=== PATIENT | female | born 1960 | race Caucasian/White ===

== ENCOUNTER → 2017-10-01 | Outpatient (CLI) | payer BC ==
[~2017-10-01] MED LIST: BENADRYL25 MG PO; BENTYL20 MG PO; BLACK COHOSH40 M1; CIPROFLOXACIN500 M1; CIPROFLOXACIN500 M1 PO; COZAAR 25 MG TA25 M2 PO; CYCLOBENZAPRINE10 MG PO; DARVOCET-N 1001 EACH PO; FIORICET 50-321 EACH PO; FLAGYL500 MG PO; FLEXERIL PO; GLUCOPHAGE500 MG PO; HCTZ; HYDROCHLOROTHIA25 M1; IBUPROFEN 400400 M1 PO; IBUPROFEN 800800 M1 PO; IMODIUM ADVANC1 EAC1 PO; LIORESAL 10 MG10 MG PO; LOPRESSOR; MULTIVITAMINS; PERCOCET 5-3251 EACH PO; PHENERGAN 25 MG25 M1 PO; POTASSIUM CHLO10 ME1 PO; TRAMADOL 50 MG50 MG PO; ULTRACET TABLE1 EACH PO; UNICOMPLEX M TA1 TA1; VICODIN 5-5001 EACH PO; VICTOZA0.6 MG/0.1 SUBQ; ZOFRAN ODT4 MG PO; [UNRECOGNIZED DRUG - OTHER]
== END ==
LOC: M.RAD 15:10
DX: Z12.31 Encounter for screening mammogram for malignant neoplasm of breast (principal)

== ENCOUNTER → 2018-06-25 | Outpatient (CLI) | payer OTHER | LOC: M.CT 06-18 14:15 | DX: Z13.6 Encounter for screening for cardiovascular disorders (principal) ==

== ENCOUNTER 2018-07-19 20:27 | Emergency (ER) | payer BC ==
[~2018-07-19] VITALS: Ht 170.2 cm; Wt 102.1 kg
[~2018-07-19 20:27] MED LIST changes: -FLEXERIL PO
[2018-07-19] MEDS ORDERED: FLEXERIL PO (21:05)
[2018-07-19 21:43] VITALS: BP 161/67
== END 2018-07-19 21:44 | disposition home or self-care (01) ==
LOC: M.ERS 20:27
DX: M54.32 Sciatica, left side (principal); F17.210 Nicotine dependence, cigarettes, uncomplicated; Z88.5 Allergy status to narcotic agent; Z88.6 Allergy status to analgesic agent; Z88.8 Allergy status to other drugs, medicaments and biological substances; Z90.710 Acquired absence of both cervix and uterus; Z96.651 Presence of right artificial knee joint

== ENCOUNTER → 2019-01-27 | Outpatient (CLI) | payer BC ==
[~2019-01-27] MED LIST changes: +FLEXERIL PO
== END ==
LOC: M.RAD 01-18 10:33
DX: Z12.31 Encounter for screening mammogram for malignant neoplasm of breast (principal); Z13.820 Encounter for screening for osteoporosis; N95.1 Menopausal and female climacteric states; M19.90 Unspecified osteoarthritis, unspecified site; E28.39 Other primary ovarian failure

== ENCOUNTER 2019-03-09 08:17 | Emergency (ER) | payer BC ==
[~2019-03-09] VITALS: Ht 170.2 cm; Wt 105.2 kg
[2019-03-09] MEDS ORDERED: CRESTOR10 MG PO (08:31)
[2019-03-09] MEDS ORDERED: AMBIEN5 MG PO (08:31)
[2019-03-09] MEDS ORDERED: OMEPRAZOLE40 MG PO (08:32)
[2019-03-09 08:50] LABS: ABSOLUTE BASOPHILS 0.1 thou/uL (0.0-0.2); ABSOLUTE EOSINOPHILS 0.2 thou/uL (0.0-0.7); ABSOLUTE LYMPHOCYTES 2.9 thou/uL (0.8-5.3); ABSOLUTE MONOCYTES 0.3 thou/uL (0.0-1.2); ABSOLUTE NEUTROPHILS 2.6 thou/uL (1.6-8.1); EOSINOPHILS 2.8 %; HEMATOCRIT 34.8 % (37.0-47.0); HEMOGLOBIN 11.8 gm/dL (12.0-15.0); LYMPHOCYTES 47.2 %; MCH 28.2 pg (26.0-34.0); MCHC 33.8 g/dL (28.0-37.0); MCV 83.6 fL (80.0-100.0); MONOCYTES 5.5 %; NUCLEATED RBCS 0 /100WBC; PLATELET COUNT* 276 thou/uL (150-400); POLYS 43.5 %; RBC 4.16 mil/uL (4.20-5.00); RDW-CV 13.7 % (10.5-14.5); WBC 6.1 thou/uL (4.0-11.0)
[2019-03-09 09:00] LABS: APTT 25.9 Seconds (25.0-31.3); PROTIME 10.1 Seconds (9.20-11.50)
[2019-03-09 09:12] LABS: ANION GAP 10 mmol/L (7-16); BUN 19 mg/dL (7-18); CALCIUM 9.3 mg/dL (8.5-10.1); CHLORIDE 104 mmol/L (98-107); CO2 26 mmol/L (21-32); CREATININE 0.8 mg/dL (0.6-1.3); GLUCOSE 198 mg/dL (70-99); POTASSIUM 4.3 mmol/L (3.5-5.1); SODIUM 140 mmol/L (136-145)
[2019-03-09 09:29] LABS: ALBUMIN 3.4 g/dL (3.4-5.0); ALKALINE PHOSPHATASE 93 U/L (46-116); NT-PRO BRAIN NAT PEPTIDE 86 pg/mL (<300); SGOT 34 U/L (15-37); SGPT 39 U/L (30-65); TOTAL BILIRUBIN 0.3 mg/dL (<0.1-1.0); TOTAL PROTEIN 7.2 g/dL (6.4-8.2); TROPONIN-I LEVEL <0.06 ng/mL (<0.06)
[2019-03-09 09:55] VITALS: BP 152/73
--- NOTE | 2019-03-09 15:38 | EKG ---
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1960 Requested By: Vaibhav Daniels Order Number: [id number] MD: Gallito Keith Measurements Intervals [place] Rate: 83 P: 68 NH: 169 QRS: 25 QRSD: 80 T: 66 QT: 378 QTc: 445 Interpretive Statements Sinus rhythm premature complex supraventricular Low voltage, precordial leads Anteroseptal infarct, old Compared to ECG 09/09/2016 14:39:42 supraventricular beat(s) now present Low QRS voltage now present Myocardial infarct finding still present Electronically Signed On 03-09-2019 15:38:40 CDT by Gallito Keith [email or web address] <ELECTRONICALLY SIGNED> By: Gallito Keith MD, [facility] 03/09/19 1538 0830 0830 Gallito Keith MD, [facility] /EPI
== END 2019-03-09 09:56 | disposition home or self-care (01) ==
LOC: M.ERS 08:17
PROVIDERS: Family Medicine
DX: R42 Dizziness and giddiness (principal); Z88.8 Allergy status to other drugs, medicaments and biological substances; Z88.6 Allergy status to analgesic agent; Z88.5 Allergy status to narcotic agent; Z90.89 Acquired absence of other organs; Z96.651 Presence of right artificial knee joint

== ENCOUNTER 2019-09-04 14:59 | Inpatient (IN) | payer BC ==
[~2019-09-04] VITALS: Ht 172.7 cm; Wt 106.1 kg
[~2019-09-04 14:59] MED LIST changes: +AMBIEN5 MG PO; +CRESTOR10 MG PO; +OMEPRAZOLE40 MG PO
[2019-09-04 15:07] VITALS: BP 141/58
[2019-09-04] MEDS ORDERED: CRESTOR10 MG PO (15:19)
[2019-09-04 15:47] LABS: URINE BILIRUBIN NEGATIVE (Negative); URINE BLOOD NEGATIVE (Negative); URINE CLARITY CLEAR; URINE COLOR YELLOW; URINE GLUCOSE-RANDOM TRACE (Negative); URINE KETONES NEGATIVE (Negative); URINE LEUKOCYTES-REFLEX NEGATIVE (Negative); URINE NITRITE-REFLEX NEGATIVE (Negative); URINE PROTEIN NEGATIVE (Negative); URINE UROBILINOGEN 0.2 E.U./dl (0.2-1.0)
[2019-09-04 15:54] LABS: ABSOLUTE EOSINOPHILS 0.2 thou/uL (0.0-0.7); ABSOLUTE LYMPHOCYTES 2.4 thou/uL (0.8-5.3); ABSOLUTE MONOCYTES 0.5 thou/uL (0.0-1.2); ABSOLUTE NEUTROPHILS 8.3 thou/uL (1.6-8.1); BASOPHILS 0.2 %; EOSINOPHILS 1.8 %; HEMATOCRIT 35.2 % (37.0-47.0); HEMOGLOBIN 11.9 gm/dL (12.0-15.0); MCH 29.3 pg (26.0-34.0); MCHC 33.9 g/dL (28.0-37.0); MCV 86.6 fL (80.0-100.0); MONOCYTES 4.1 %; MPV 6.8 fl. (7.2-11.1); NUCLEATED RBCS 0 /100WBC; PLATELET COUNT* 281 thou/uL (150-400); POLYS 72.9 %; RBC 4.06 mil/uL (4.20-5.00); RDW-CV 13.2 % (10.5-14.5); WBC 11.4 thou/uL (4.0-11.0)
[2019-09-04 16:02] LABS: CALCIUM 8.7 mg/dL (8.5-10.1); CREATININE 0.8 mg/dL (0.6-1.3); POTASSIUM 3.5 mmol/L (3.5-5.1)
[2019-09-04 16:06] LABS: ALBUMIN 3.6 g/dL (3.4-5.0); TOTAL BILIRUBIN 0.3 mg/dL (<0.1-1.0); TOTAL PROTEIN 7.6 g/dL (6.4-8.2)
[2019-09-04 17:47] LABS: AMP/METHAMP Negative (Negative); BARBITURATES Negative (Negative); BENZODIAZEPINES Negative (Negative); COCAINE Negative (Negative); METHADONE Negative (Negative); OPIATES Negative (Negative); PCP Negative (Negative); THC Negative (Negative)
[2019-09-04 18:01] LABS: PROTIME 10.3 Seconds (9.20-11.50)
[2019-09-04 18:18] VITALS: BP 148/57
--- NOTE | 2019-09-04 18:18 | NUR ---
REPORT GIVEN TO ALYSSIA VASQUEZ WHO IS TO ASSUME PT CARE INPATIENT NURSE.
[2019-09-04 18:40] VITALS: BP 145/77
--- NOTE | 2019-09-04 18:53 | NUR ---
PT ARRIVED ON UNIT AT 1840 AND AMBULATED TO BATHROOM FROM ER CART WITH A STEADY GAIT. REBECA CADE FROM ER STATED THE PHYSICIAN WAS OKAY WITH ICE CHIPS THIS SHIFT. PT TO TRANSITION TO NS @ 150 AFTER W/O COMPLETE. PT REPORTS NAUSEA, AND PAIN OF 7/10, SHE STATES THE ZOFRAN ONLY LASTS FOR A FEW MINUTES BUT HER PAIN IS TOLERABLE AT THIS TIME. WILL CONTINUE TO MONITOR AND ASSESS.
[2019-09-05] VITALS: BP 111/50
[2019-09-05 04:05] LABS: HEMATOCRIT 29.8 % (37.0-47.0); MCHC 33.2 g/dL (28.0-37.0); MCV 87.4 fL (80.0-100.0); MPV 6.9 fl. (7.2-11.1); NUCLEATED RBCS 0 /100WBC; PLATELET COUNT* 238 thou/uL (150-400); RBC 3.41 mil/uL (4.20-5.00); RDW-CV 13.4 % (10.5-14.5); WBC 7.2 thou/uL (4.0-11.0)
[2019-09-05 04:26] LABS: HEMOGLOBIN 9.9 gm/dL (12.0-15.0)
--- NOTE | 2019-09-05 04:28 | NUR ---
ASSUMED CARE OF PT 09/04/19 AT APPROX 1930, PT A&OX4 THROUGHOUT SHIFT, VSS, PT ON ROOM AIR, UP AD [place], PAIN AND ANTIEMETIC REQUESTED AND GIVEN ORDERED, ASSESSMENTS AND HOURLY ROUNDING COMPLETED. WILL CONTINUE TO MONITOR.
[2019-09-05 04:39] LABS: ALBUMIN 2.9 g/dL (3.4-5.0); CALCIUM 8.3 mg/dL (8.5-10.1); CREATININE 0.7 mg/dL (0.6-1.3); POTASSIUM 3.4 mmol/L (3.5-5.1); TOTAL BILIRUBIN 0.4 mg/dL (<0.1-1.0)
[2019-09-05 04:41] LABS: CHOLESTEROL 118 mg/dL (<200); HDL CHOLESTEROL 34 mg/dL (>40); LDL CHOLESTEROL 61 mg/dL (<100); TC:HDL 3.5 Ratio (Not establshd); TRIGLYCERIDE 116 mg/dL (<150); VLDL 23 mg/dL (<40)
[2019-09-05 05:01] LABS: SERUM ASSESSMENT CLEAR
[2019-09-05 06:57] LABS: ABSOLUTE EOSINOPHILS 0.4 thou/uL (0.0-0.7); ABSOLUTE LYMPHOCYTES 4.2 thou/uL (0.8-5.3); ABSOLUTE MONOCYTES 0.4 thou/uL (0.0-1.2); ABSOLUTE NEUTROPHILS 2.3 thou/uL (1.6-8.1); ANISOCYTOSIS 1+; ATYPICAL LYMPHS 2 %; HYPOCHROMASIA 1+; PLATELET ESTIMATE ADEQUATE
[2019-09-05 06:58] LABS: TOXIC GRANULATION 1+
[2019-09-05 07:20] VITALS: BP 128/66
[2019-09-05 16:54] VITALS: BP 158/87
--- NOTE | 2019-09-05 18:18 | NUR ---
RECEIVED REPORT FROM VETO CADE. ASSUMED CARE OF PT AROUND 1030. PT A&O X4. VSS. THIS RN AGREES WITH THE ASSESSMENT AND CHARTING OF VETO CADE. PT NPO MOST OF SHIFT FOR MRI MRCP - PT WENT DOWN FOR PROCEDURE BUT WAS ONLY ABLE TO GET THROUGH PART OF TEST BEFORE HAVING TO STOP DUE TO CLAUSTROPHOBIA. PT TOLERATED CLD AT DINNER. UP WITH SBA TO BATHROOM TO VOID. MEDS PER EMAR. IV INTACT AND INFUSING IVF. PT COMPLAINED OF ABDOMINAL PAIN AND NAUSEA THIS AFTERNOON AND RECEIVED IV PAIN MEDICATION AND ANTIEMETIC, WITH RELIEF. FAMILY AT BEDSIDE THIS EVENING. GI CONSULTED. PT CURRENTLY SITTING UP IN BED WATCHING TV. CALL LIGHT IS WITHIN REACH. HOURLY ROUNDING PERFORMED. LOW FALL RISK PRECAUTIONS IN PLACE.
[2019-09-05 20:00] VITALS: BP 133/86
[2019-09-06 04:39] LABS: HEMATOCRIT 28.4 % (37.0-47.0); HEMOGLOBIN 9.8 gm/dL (12.0-15.0); MCH 29.6 pg (26.0-34.0); MCHC 34.5 g/dL (28.0-37.0); MCV 85.8 fL (80.0-100.0); MPV 6.6 fl. (7.2-11.1); RBC 3.31 mil/uL (4.20-5.00); RDW-CV 13.1 % (10.5-14.5); WBC 5.5 thou/uL (4.0-11.0)
--- NOTE | 2019-09-06 04:41 | NUR ---
ASSUMED PATIENT CARE AT 1900. ALERT AND ORIENTED TIMES FOUR. MINOR COMPLAINT OF A HEADACHE, MEDICINE GIVEN. ALSO MINOR COMPLAINT OF HIVES, BENADRYL GIVEN. NO OTHER REACTION NOTED. ABLE TO TOLERATE CLEAR LIQUIDS AT DINNER, ADVANCED TO FULL LIQUID FOR BREAKFAST. SEVERAL BOWEL MOVEMENTS NOTED BY PATIENT. INGOT WEIGHER AND HOURLY ROUNDING COMPLETED CHARTED.
[2019-09-06 04:48] LABS: CALCIUM 8.9 mg/dL (8.5-10.1); CREATININE 0.7 mg/dL (0.6-1.3); POTASSIUM 3.8 mmol/L (3.5-5.1)
[2019-09-06 07:30] VITALS: BP 144/81
[2019-09-06] MEDS ORDERED: FLAGYL500 M1 PO (10:14)
[2019-09-06] MEDS ORDERED: CIPRO500 M1 PO (10:14)
[2019-09-06 10:35] VITALS: BP 144/81
--- NOTE | 2019-09-06 10:48 | EKG ---
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[facility] : 1960 Requested By: Katerine Ross Order Number: [id number] MD: Dmitriy Hernandez Measurements Intervals [place] Rate: 82 P: 74 [place]: 168 QRS: 35 QRSD: 92 T: 73 QT: 400 QTc: 468 Interpretive Statements Sinus rhythm Anteroseptal infarct, age indeterminate, possible Baseline wander in lead(s) I,III,aVR,aVL Compared to ECG 03/09/2019 08:30:15 No significant changes Electronically Signed On 09-06-2019 10:48:17 LIQUID COMPOUNDER by Dmitriy Hernandez [email or web address] <ELECTRONICALLY SIGNED> By: Dmitriy Hernandez MD, FACC 09/06/19 1048 1556 1556 Dmitriy Hernandez MD, FAC /EPI
--- NOTE | 2019-09-06 11:07 | PATH ---
[address] [address] PATHOLOGY RPT PROCEDURE Name: LEOPOLDO HERRERA Lj Room: [address] IN [facility]#: [id number] Admission: 09/04/19 Date of : 56 Discharge: Report #: [id number] Path Case #: [id number] Note [facility] Accession Number: [id number] TESTS RESULT FLAG UNITS REF RANGE LAB Clinician Provided Cytology Information No. of containers..01 Other (Miscellaneous) Source: VOMITED SPECIMEN DIAGNOSIS: VOMITED SPECIMEN NEGATIVE FOR MALIGNANT CELLS. DEGENERATING DEBRIS AND FEW SQUAMOUS CELLS. Signed out by: Toño Richey MD, Pathologist NPI- [id number] Performed by: Femi Bautista, Network Operations Center Engineer ([facility]) Gross description: 01 30 ML, LT BROWN, THICK /LCS 10/04/1840 0000 Local FLAG LEGEND: L-Low Normal,H-High Normal,LL-Alert Low,HH-Alert High <-Panic Low,>-Panic High,A-Abnormal,AA-Critical Abnormal Performed at: 01 [facility] [address] [place] [address] Js Berry MD, [address] [address] Toño Richey MD, Specimen Comment: A courtesy copy of this report has been sent to [phone] Specimen Comment: Report sent to Performed at: 01 [facility] [address] [place] [address] [address], [place], [place] [id number] MD Js Berry MD Phone: [phone]
[2019-09-06 11:37] VITALS: BP 144/81
[2019-09-06 15:20] VITALS: BP 144/81
[2019-09-06 15:29] VITALS: BP 144/81
--- NOTE | 2019-09-06 15:30 | NUR ---
PT GIVEN DSICHARGE INFORMATION, CARE NOTES, AND PRESCRIPTIONS. IV REMOVED, PT EDUCATED ON HOLDING PRESSURE TO STOP BLEEDING. PT BELONGINGS GATHERED. FALL RISK PRECAUTIONS IN PLACE. HOURLY ROUNDING COMPLETED. PT LEFT AMBULATORY WITH NURSING STAFF TO HOME.
== END 2019-09-06 15:31 | disposition home or self-care (01) | DRG 392 ==
LOC: M.ERS 14:59 → M.TBA-ER 17:14 → M.ORTHSURG 17:14
PROVIDERS: Nurse Practitioner Family; ADMIT Family Medicine
DX: K57.32 Diverticulitis of large intestine without perforation or abscess without bleeding (principal); R74.8 Abnormal levels of other serum enzymes; K57.90 Diverticulosis of intestine, part unspecified, without perforation or abscess without bleeding; I10 Essential (primary) hypertension; K58.9 Irritable bowel syndrome, unspecified; Z96.651 Presence of right artificial knee joint; F17.210 Nicotine dependence, cigarettes, uncomplicated; E66.9 Obesity, unspecified; F41.9 Anxiety disorder, unspecified; R16.0 Hepatomegaly, not elsewhere classified; T50.995A Adverse effect of other drugs, medicaments and biological substances, initial encounter; K76.0 Fatty (change of) liver, not elsewhere classified; Z90.49 Acquired absence of other specified parts of digestive tract; Z86.010 Personal history of colon polyps; Z86.73 Personal history of transient ischemic attack (TIA), and cerebral infarction without residual deficits; Z88.8 Allergy status to other drugs, medicaments and biological substances; Z88.6 Allergy status to analgesic agent; Z79.899 Other long term (current) drug therapy; Z68.35 Body mass index [BMI] 35.0-35.9, adult; Y92.098 Other place in other non-institutional residence as the place of occurrence of the external cause

== ENCOUNTER → 2019-10-03 | Outpatient (CLI) | payer BC ==
[~2019-10-03] MED LIST changes: +CIPRO500 M1 PO; +FLAGYL500 M1 PO
[2019-10-03 09:04] LABS: CREATININE 0.8 mg/dL (0.6-1.3)
== END ==
LOC: M.LAB 08:00 → M.CT 09:00
PROVIDERS: Family Medicine
DX: K57.92 Diverticulitis of intestine, part unspecified, without perforation or abscess without bleeding (principal); K57.30 Diverticulosis of large intestine without perforation or abscess without bleeding; M47.816 Spondylosis without myelopathy or radiculopathy, lumbar region

== ENCOUNTER → 2019-10-06 | Outpatient (CLI) | payer BC ==
[2019-10-06 10:27] LABS: CREATININE 0.9 mg/dL (0.6-1.3); POTASSIUM 3.9 mmol/L (3.5-5.1)
[2019-10-07 02:06] LABS: GLYCOHEMOGLOBIN (HGB A1C) 8.5 % (4.8-5.6)
== END ==
LOC: M.LAB 09:56
PROVIDERS: Family Medicine
DX: E11.42 Type 2 diabetes mellitus with diabetic polyneuropathy (principal)

== ENCOUNTER → 2020-02-28 | Outpatient (CLI) | payer BC | LOC: M.RAD 10:00 | DX: Z12.31 Encounter for screening mammogram for malignant neoplasm of breast (principal) ==

== ENCOUNTER → 2020-12-13 | Outpatient (CLI) | payer BC ==
[~2020-12-13] MED LIST changes: +AMARYL2 M1 PO; +AMBIEN 10 MG TA10 MG PO; -AMBIEN5 MG PO; -COZAAR 25 MG TA25 M2 PO; +CRESTOR5 MG PO; +LOSARTAN-HCTZ1 EAC3 PO; +OZEMPIC0.25 MG/0. SUBQ
== END ==
LOC: M.PC 08:26
PROVIDERS: ATTEND Anesthesiology Pain Medicine
DX: M54.16 Radiculopathy, lumbar region (principal); K57.90 Diverticulosis of intestine, part unspecified, without perforation or abscess without bleeding; E66.9 Obesity, unspecified; I10 Essential (primary) hypertension; E11.9 Type 2 diabetes mellitus without complications; J45.909 Unspecified asthma, uncomplicated; D89.89 Other specified disorders involving the immune mechanism, not elsewhere classified; Z96.651 Presence of right artificial knee joint; Z98.890 Other specified postprocedural states; Z68.35 Body mass index [BMI] 35.0-35.9, adult; Z90.49 Acquired absence of other specified parts of digestive tract; Z90.710 Acquired absence of both cervix and uterus; Z88.8 Allergy status to other drugs, medicaments and biological substances; Z79.899 Other long term (current) drug therapy; Z86.73 Personal history of transient ischemic attack (TIA), and cerebral infarction without residual deficits

== ENCOUNTER → 2021-02-07 | Outpatient (CLI) | payer BC | LOC: M.RAD 15:00 | PROVIDERS: ATTEND Family Medicine | DX: Z12.31 Encounter for screening mammogram for malignant neoplasm of breast (principal) ==

== ENCOUNTER → 2021-02-18 | Outpatient (CLI) | payer BC ==
[2021-02-18 14:28] LABS: CREATININE 0.8 mg/dL (0.6-1.3)
== END ==
LOC: M.LAB 10:00 → M.CT 11:00 → M.LAB 13:48
PROVIDERS: ATTEND Nurse Practitioner Family
DX: K57.30 Diverticulosis of large intestine without perforation or abscess without bleeding (principal)